=== PATIENT | female | born 1950 | race Caucasian/White ===

== ENCOUNTER → 2017-12-11 09:29 | Outpatient (REF) | payer MEDICAID, SELFPAY ==
[2017-12-11 19:12] LABS: C-Reactive Protein 0.09 mg/dL (0.0-0.3)
[2017-12-11 19:48] LABS: ESR 16 MM/HR (0-30)
== END ==
LOC: LBN 09:29
PROVIDERS: PCP Internal Medicine; Visit Provider Internal Medicine Rheumatology
DX: M19.90 Unspecified osteoarthritis, unspecified site (principal); M79.7 Fibromyalgia
CPT/HCPCS: 85652; 86140

== ENCOUNTER 2018-11-23 10:11 | Outpatient (REF) | payer MEDICAID, SELFPAY ==
[2018-11-23 20:24] LABS: ALT 18 U/L (12-78); AST 12 U/L (15-37); Calculated LDL 80 mg/dL; Cholesterol 168 mg/dL (50-200); HDL Cholesterol 64 mg/dL (40-60); Triglyceride 123 mg/dL (30-150)
[2018-11-23 20:34] LABS: Hemoglobin A1C 6.2 % (4.5-6.2)
== END 2018-11-23 10:31 ==
LOC: NCHCN 10:11
PROVIDERS: PCP Internal Medicine; Visit Provider Nurse Practitioner Family
DX: E78.5 Hyperlipidemia, unspecified (principal); R73.9 Hyperglycemia, unspecified
CPT/HCPCS: 80061; 83721; 83036; 84450; 84460

== ENCOUNTER 2021-01-22 16:22 | Outpatient (REF) | payer MEDICAID, SELFPAY ==
[2021-01-22 19:54] LABS: ALT 29 U/L (14-59); Anion Gap 9.8 mmol/L (3-11); BUN 16 mg/dL (7-18); CO2 27.2 mmol/L (21.0-32.0); CREATININE 0.8 mg/dL (0.55-1.02); Calcium 10.1 mg/dL (8.5-10.1); Chloride 104 mmol/L (98-107); Glucose 137 mg/dL (74-106); LDL CHOLESTEROL 75 mg/dL (<100); Potassium 3.7 mmol/L (3.5-5.1); Sodium 141 mmol/L (136-145); TSH 0.66 uIU/mL (0.36-3.74)
== END 2021-01-22 16:23 | disposition home or self-care (01) ==
LOC: NCHCN 16:22
PROVIDERS: PCP Internal Medicine; Visit Provider Internal Medicine
DX: R73.03 Prediabetes (principal); E66.9 Obesity, unspecified; E78.5 Hyperlipidemia, unspecified; F41.9 Anxiety disorder, unspecified
CPT/HCPCS: 80048; 83721; 84443; 84460

== ENCOUNTER 2021-05-19 15:27 | Outpatient (REF) | payer MEDICAID, SELFPAY ==
[2021-05-21 11:19] LABS: COVID-19 RT-PCR UVMMC Result Negative (Negative)
== END 2021-05-19 15:28 | disposition home or self-care (01) ==
LOC: NCHCN 15:27
PROVIDERS: PCP Internal Medicine; Visit Provider Nurse Practitioner Family
DX: Z20.822 Contact with and (suspected) exposure to COVID-19 (principal); R05.8 Other specified cough
CPT/HCPCS: U0003

== ENCOUNTER 2021-07-06 16:25 | Outpatient (REF) | payer MEDICAID, SELFPAY ==
[2021-07-06 19:52] LABS: TSH 0.98 uIU/mL (0.36-3.74); Vitamin B12 507 pg/mL (193-986)
== END 2021-07-06 16:26 | disposition home or self-care (01) ==
LOC: NCHCN 16:25
PROVIDERS: PCP Internal Medicine; Visit Provider Nurse Practitioner Family
DX: R41.3 Other amnesia (principal)
CPT/HCPCS: 82607; 84443

== ENCOUNTER 2022-04-28 13:33 | Outpatient (REF) | payer MEDICAID, SELFPAY ==
[2022-04-28 18:51] LABS: Anion Gap 8.9 mmol/L (3-11); BUN 15 mg/dL (7-18); CO2 28.1 mmol/L (21.0-32.0); CREATININE 0.8 mg/dL (0.55-1.02); Calcium 9.8 mg/dL (8.5-10.1); Chloride 104 mmol/L (98-107); Estimated GFR 77.75 (mL/min/1.73m2); Glucose 140 mg/dL (74-106); Potassium 4.2 mmol/L (3.5-5.1); Sodium 141 mmol/L (136-145)
== END 2022-04-28 13:34 | disposition home or self-care (01) ==
LOC: NCHCN 13:33
PROVIDERS: PCP Internal Medicine; Visit Provider Nurse Practitioner Family
DX: G30.9 Alzheimer's disease, unspecified (principal)
CPT/HCPCS: 80048

== ENCOUNTER 2022-12-16 17:41 | Outpatient (REF) | payer MEDICAID, SELFPAY ==
[2022-12-16 19:11] LABS: Abs Immature Grans 0.01 10^3/uL (0.0-0.06); Absolute Eosinophil Count 0.43 10^3/uL (0.0-0.7); Absolute Lymphocyte Count 1.86 10^3/uL (1.2-3.4); Absolute Monocyte Count 0.74 10^3/uL (0.1-0.8); Absolute Neutrophil Count 4.43 10^3/uL (1.2-6.7); Basophils % 1.3; Eosinophils % 5.7; HCT 45.3 % (36.0-46.0); HGB 14.8 g/dL (11.2-15.7); Immature Grans % 0.1; Lymphocytes % 24.6; MCH 30.7 pg (27.0-33.0); MCHC 32.7 % (32.0-36.0); MCV 94 fL (80-95); MPV 9.9 fL (8.0-11.0); Monocytes % 9.8; Neutrophils % 58.5; Platelet Count 268 10^3/uL (130-400); RBC 4.82 10^6/uL (3.93-5.22); RDW 13.8 % (11.7-14.6); RDW-SD 47.9 fL; WBC 7.57 10^3/uL (4.4-10.8)
[2022-12-16 19:40] LABS: ALT 27 U/L (14-59); AST 18 U/L (15-37); Albumin 3.6 g/dL (3.4-5.0); Alkaline Phosphatase 122 U/L (46-116); Anion Gap 8.5 mmol/L (3-11); BUN 11 mg/dL (7-18); Bilirubin, Total 0.6 mg/dL (0.2-1.0); CO2 29.5 mmol/L (21.0-32.0); CREATININE 0.8 mg/dL (0.55-1.02); Chloride 105 mmol/L (98-107); Estimated GFR 77.27 (mL/min/1.73m2); Glucose 107 mg/dL (74-106); LDL CHOLESTEROL 173 mg/dL (<100); Potassium 4.3 mmol/L (3.5-5.1); Sodium 143 mmol/L (136-145); TSH (W/Ref FT4) 0.84 uIU/mL (0.36-3.74); Total Protein 6.8 g/dL (6.4-8.2)
[2022-12-16 19:44] LABS: Hemoglobin A1C 6.4 % (<5.7)
== END 2022-12-16 17:42 | disposition home or self-care (01) ==
LOC: NCHCN 17:41
PROVIDERS: PCP Internal Medicine; Visit Provider Physician Assistant
DX: R73.03 Prediabetes (principal); G30.9 Alzheimer's disease, unspecified; E66.9 Obesity, unspecified; N39.0 Urinary tract infection, site not specified; E78.5 Hyperlipidemia, unspecified; F41.8 Other specified anxiety disorders
CPT/HCPCS: 80053; 83721; 87077; 83036; 84443; 85025; 87086; 87186